=== PATIENT | male | born 1990 | race African-American/Black ===

== ENCOUNTER 2019-04-27 10:59 | Emergency (ER) | payer MEDICAID ==
[~2019-04-27] VITALS: Ht 180.3 cm; Wt 95.0 kg
[2019-04-27 11:12] VITALS: BP 119/83
== END 2019-04-27 14:32 | disposition left against medical advice (07) ==
LOC: ER 11:00
DX: R73.9 Hyperglycemia, unspecified (principal); Z53.21 Procedure and treatment not carried out due to patient leaving prior to being seen by health care provider
CPT/HCPCS: 82948

== ENCOUNTER 2019-04-30 13:43 | Emergency (ER) | payer MEDICAID ==
[~2019-04-30] VITALS: Ht 180.3 cm; Wt 102.7 kg
[2019-04-30 13:59] VITALS: BP 133/76
[2019-04-30] MEDS ORDERED: SYRI-641 SQ (14:18)
[2019-04-30] MEDS ORDERED: LANTUS SQ (14:18)
[2019-04-30] MEDS ORDERED: BLOO1EAC70 MC (14:18)
[2019-04-30] MEDS ORDERED: insulin regular, human 10 units/0.1 ml syringe SQ ONE (14:25)
== END 2019-04-30 15:13 | disposition home or self-care (01) ==
LOC: ER 13:44
DX: R06.02 Shortness of breath (principal); E11.9 Type 2 diabetes mellitus without complications; Z59.0 Homelessness; Z56.0 Unemployment, unspecified; Z91.018 Allergy to other foods; Z88.1 Allergy status to other antibiotic agents; Z79.4 Long term (current) use of insulin
CPT/HCPCS: 82948; 96372; 99283; J1815

== ENCOUNTER 2020-02-10 22:14 | Emergency (ER) | payer MEDICAID ==
[~2020-02-10] VITALS: Ht 180.3 cm; Wt 97.7 kg
[~2020-02-10 22:14] MED LIST: BLOO1EAC70 MC; SYRI-641 SQ
[2020-02-10 22:23] VITALS: BP 144/89
[2020-02-10] MEDS ORDERED: LIDOcaine 1% W/epiNEPHrine 1:200,000 10ml vial IJ ONE (23:10)
[2020-02-10] MEDS ORDERED: LIDOcaine 1% w/epiNEPHrine 1:200,000 30ml vial IJ ONE (23:10)
[2020-02-10] MEDS ORDERED: cephalexin 250mg capsule PO ONE (23:50)
[2020-02-10] MEDS ORDERED: sulfamethoxazole/trimethoprim DS (800/160mg) tablet PO ONE (23:50)
[2020-02-10] MEDS ORDERED: SULF1TAB49 PO (23:57)
[2020-02-10] MEDS ORDERED: CEPH500C5 PO (23:57)
== END 2020-02-11 00:07 | disposition home or self-care (01) ==
LOC: ER 22:14
DX: L02.416 Cutaneous abscess of left lower limb (principal); E11.9 Type 2 diabetes mellitus without complications; Z91.018 Allergy to other foods; Z88.1 Allergy status to other antibiotic agents; Z79.2 Long term (current) use of antibiotics
CPT/HCPCS: 10060; 76882; 87070; 87077; 87186; 99284